=== PATIENT | female | born 1945 | race Caucasian/White ===

== ENCOUNTER 2021-08-14 11:03 | Emergency (ER) | payer MEDICARE ==
[2021-08-14] MEDS ORDERED: fentaNYL 100 MCG/2 ML SDV IVPUSH ONE ×2 (11:36→13:51)
[2021-08-14] MEDS ORDERED: Sodium Chloride 0.9% 10 ML Syringe FLUSH PRN (11:36)
[2021-08-14] MEDS ORDERED: Iopamidol 612 MG/ML 100 ML Bottle IV ONE (12:12)
[2021-08-14] MEDS ORDERED: Sodium Chloride 0.9% 50 ML IV SCH (12:15)
[2021-08-14] MEDS ORDERED: Sodium Chloride 0.9% 500 ML IV ONE (14:34)
[2021-08-14] MEDS ORDERED: Ondansetron 4 MG/2 ML SDV IVPUSH ONE (14:45)
== END 2021-08-14 16:10 | disposition home or self-care (01) ==
LOC: JP.ED 11:03
DX: R10.31 Right lower quadrant pain (principal); R22.9 Localized swelling, mass and lump, unspecified; E87.6 Hypokalemia; R03.0 Elevated blood-pressure reading, without diagnosis of hypertension
CPT/HCPCS: 36415; 74177; 76856; 80048; 80076; 81001; 83605; 85025; 86140; 86304; 96374; 96375; 96376; 99284; J2405; J3010; J7040; Q9967

== ENCOUNTER 2022-05-23 13:17 | Emergency (ER) | payer MEDICARE ==
[2022-05-23 14:28] LABS: CORONAVIRUS COVID-19 NAA NEGATIVE (NEGATIVE)
[2022-05-23] MEDS ORDERED: Meclizine 25 MG Tab PO ONE (14:39)
[2022-05-23] MEDS ORDERED: Sodium Chloride 0.9% 10 ML Syringe FLUSH PRN ×2 (14:39→15:02)
[2022-05-23] MEDS ORDERED: Sodium Chloride 0.9% 1,000 ML IV SCH (14:45)
[2022-05-23] MEDS ORDERED: Sodium Chloride 0.9% 75 ML IV SCH (15:15)
[2022-05-23] MEDS ORDERED: Iopamidol 755 Mg/ML 100 ML Bottle IV SCH (15:15)
[2022-05-23 15:20] LABS: TROPONIN I HIGH SENSITIVITY 6.9 pg/mL (<=60.3)
== END 2022-05-23 16:30 | disposition home or self-care (01) ==
LOC: JP.ED 13:17
DX: R42 Dizziness and giddiness (principal); Z20.822 Contact with and (suspected) exposure to COVID-19
CPT/HCPCS: 0241U; 36415; 70450; 70496; 70498; 80048; 83605; 84484; 85025; 96360; 99284; A9270; J3490; J7030; Q9967